=== PATIENT | female | born 1980 | race Caucasian/White ===

== ENCOUNTER → 2017-03-21 | Outpatient (CLI) | payer MEDICAID ==
--- NOTE | 2017-03-21 12:56 | RADIOLOGY REPORT (SQ) ---
EXAM DESCRIPTION: VENOUS BILATERAL LOWER COMPLETED DATE/TIME: 03/21/2017 12:48 pm REASON FOR STUDY: BLE R60.9 R60.9 EDEMA, UNSPECIFIED COMPARISON: None. TECHNIQUE: Dynamic and static scale and color images acquired of both lower extremity venous sy stems. Selected spectral images acquired with additional compression and augmentation maneuvers. Imag es stored on PACS. LIMITATIONS: None. FINDINGS: RIGHT LEG COMMON FEMORAL AND FEMORAL: Normal phasicity, compression and augmentation. No visualized echogenic m aterial on scale. No defects on color images. POPLITEAL: Normal compression and augmentation. No visualized echogenic material on scale. No de fects on color images. CALF VESSELS: Normal compression and augmentation. No visualized echogenic material on scale. No defects on color image. GSV AND SSV: Nonocclusive thrombus in the small saphenous vein. ANY DEEP VENOUS INSUFFICIENCY: No. ANY EVIDENCE OF POPLITEAL CYST: No. OTHER: No other significant finding. LEFT LEG COMMON FEMORAL AND FEMORAL: Normal phasicity, compression and augmentation. No visualized echogenic m aterial on scale. No defects on color images. POPLITEAL: Normal compression and augmentation. No visualized echogenic material on scale. No de fects on color images. CALF VESSELS: Normal compression and augmentation. No visualized echogenic material on scale. No defects on color images. GSV AND SSV: Normal compression. No visualized echogenic material on scale. No defects on color images. ANY DEEP VENOUS INSUFFICIENCY: Reflux small saphenous vein. ANY EVIDENCE POPLITEAL CYST: No. OTHER: No other significant finding. IMPRESSION: Superficial venous thrombosis right small saphenous vein. No evidence of acute deep vei n thrombosis. TECHNICAL DOCUMENTATION: JOB ID: [id number] [employer]- All Rights Reserved
--- NOTE | 2017-03-21 14:18 | RADIOLOGY REPORT (SQ) ---
EXAM DESCRIPTION: L SPINE 2 VIEWS COMPLETED DATE/TIME: 03/21/2017 12:46 pm REASON FOR STUDY: LUMBAR RADICULOPATHY R60.9 EDEMA, UNSPECIFIED COMPARISON: None. NUMBER OF VIEWS: Two views. TECHNIQUE: AP and lateral radiographic images acquired of the lumbar spine. LIMITATIONS: None. FINDINGS: MINERALIZATION: Normal. SEGMENTATION: Normal. No transitional anatomy. ALIGNMENT: Normal. VERTEBRAE: Maintained height. No fracture or worrisome bone lesion. DISCS: Disc implant is present at L5-S1. There are posterior rods at this level with screws extendin g through the pedicles POSTERIOR ELEMENTS: Pedicles and facets are intact. No pars defect or posterior arch defects. HARDWARE: Surgical hardware. PARASPINAL SOFT TISSUES: Normal. PELVIS: Intact as visualized. No fractures or worrisome bone lesions. SI joints intact. OTHER: No other significant finding. IMPRESSION: Surgical changes with no acute abnormality. TECHNICAL DOCUMENTATION: JOB ID: [id number] [employer]- All Rights Reserved
== END ==
LOC: SP 11:33
PROVIDERS: ATTEND Specialist
DX: M54.16 Radiculopathy, lumbar region (principal); R60.9 Edema, unspecified
CPT/HCPCS: 72100; 93970

== ENCOUNTER → 2017-04-10 | Outpatient (CLI) | payer MEDICAID ==
--- NOTE | 2017-04-10 12:45 | RADIOLOGY REPORT (SQ) ---
EXAM DESCRIPTION: L SPINE 2 VIEWS COMPLETED DATE/TIME: 04/10/2017 12:23 pm REASON FOR STUDY: LUMBAR RADICULOPATHY COMPARISON: 03/21/2017 NUMBER OF VIEWS: Two views. TECHNIQUE: AP and lateral radiographic images acquired of the lumbar spine. LIMITATIONS: None. FINDINGS: MINERALIZATION: Normal. SEGMENTATION: Normal. No transitional anatomy. ALIGNMENT: Normal. VERTEBRAE: Maintained height. No fracture or worrisome bone lesion. DISCS: Disc implant is present at L5-S1. POSTERIOR ELEMENTS: Pedicles and facets are intact. No pars defect or posterior arch defects. HARDWARE: Posterior rods are present. There is a disc implant at L5-S1. Surgical wires overlie the left sacroiliac joint. PARASPINAL SOFT TISSUES: Normal. PELVIS: Intact as visualized. No fractures or worrisome bone lesions. SI joints intact. OTHER: No other significant finding. IMPRESSION: Surgical changes with no acute abnormality. TECHNICAL DOCUMENTATION: JOB ID: [id number] [employer]- All Rights Reserved
== END ==
LOC: RAD 12:01
PROVIDERS: ATTEND Specialist
DX: M54.16 Radiculopathy, lumbar region (principal)
CPT/HCPCS: 72100

== ENCOUNTER → 2017-05-19 | Outpatient (CLI) | payer MEDICAID ==
--- NOTE | 2017-05-19 15:04 | RADIOLOGY REPORT (SQ) ---
EXAM DESCRIPTION: L SPINE FLEX/EXT ONLY; SPINE SINGLE VIEW COMPLETED DATE/TIME: 05/19/2017 11:54 am REASON FOR STUDY: LUMBAR RADICULOPATHY (M54.16) M54.16 RADICULOPATHY, LUMBAR REGION COMPARISON: None. TECHNIQUE: AP and lateral neutral, flexion and extension radiographs of the spine. NUMBER OF VIEWS: Four views. LIMITATIONS: None. FINDINGS: Status post posterior fusion and prosthetic disc L5-S1. Instrumentation intact. Normal a lignment, maintained throughout flexion and extension. No abnormal motion. OTHER: No other significant finding. IMPRESSION: NO RADIOGRAPHIC EVIDENCE OF ABNORMAL MOTION. TECHNICAL DOCUMENTATION: JOB ID: [id number] [employer]- All Rights Reserved
--- NOTE | 2017-05-19 15:04 | RADIOLOGY REPORT (SQ) ---
EXAM DESCRIPTION: L SPINE FLEX/EXT ONLY; SPINE SINGLE VIEW COMPLETED DATE/TIME: 05/19/2017 11:54 am REASON FOR STUDY: LUMBAR RADICULOPATHY (M54.16) M54.16 RADICULOPATHY, LUMBAR REGION COMPARISON: None. TECHNIQUE: AP and lateral neutral, flexion and extension radiographs of the spine. NUMBER OF VIEWS: Four views. LIMITATIONS: None. FINDINGS: Status post posterior fusion and prosthetic disc L5-S1. Instrumentation intact. Normal a lignment, maintained throughout flexion and extension. No abnormal motion. OTHER: No other significant finding. IMPRESSION: NO RADIOGRAPHIC EVIDENCE OF ABNORMAL MOTION. TECHNICAL DOCUMENTATION: JOB ID: [id number] [employer]- All Rights Reserved
== END ==
LOC: RAD 11:10
PROVIDERS: ATTEND Specialist
DX: M54.16 Radiculopathy, lumbar region (principal)
CPT/HCPCS: 72020; 72120